=== PATIENT | female | born 1980 | race Caucasian/White ===

== ENCOUNTER 2021-03-25 09:10 | Emergency (ER) | payer SELFPAY ==
[2021-03-25 09:17] VITALS: BP 142/90; PULSE 73; RESP 16; TEMP 36.8; O2SAT 99
--- NOTE | 2021-03-25 09:20 | ED.WOUNDLAC ---
HPI - Wound/Laceration General Chief Complaint: Wound/Laceration Stated Complaint: Laceration on Left Hand Time Seen by Provider: 03/25/21 09:30 Source: patient and RN notes reviewed Mode of arrival: ambulatory Limitations: no limitations History of Present Illness HPI narrative: 40-year-old female presents concern for laceration to the left hand. Reports prior to arrival she was using a preparing box tender and cut the hand. She reports she is up-to-date on her vaccinations. She denies any decrease strength, sensation, range of motion in the hand or digits. Extremity Location: Left: hand Related Data Home Medications Medication Instructions Recorded Confirmed hydrochlorothiazide 03/25/21 norethindrone-e.estradiol-iron tablet 03/25/21 [Michael Fe [birth year] ([birth year])] Allergies Allergy/AdvReac Type Severity Reaction Status Date / Time No Known Allergies Allergy Verified 03/25/21 09:40 Review of Systems Review of Systems: CONSTITUTIONAL: Denies malaise, chills, sweats, or fever. SKIN: Reports laceration to the palmar aspect of the left hand beneath the first digit MUSCULOSKELETAL: Denies muscle skeletal pain, decreased range of motion, strength NEUROLOGIC: Denies numbness, weakness All systems reviewed & are unremarkable except as noted in HPI and below PMFSH Comments At time of signature, agree with nursing past medical, surgical, social and family history. There is no relevant family history pertinent to the presenting complaint Exam Narrative: GENERAL: Well-appearing, well-nourished, and in no acute distress. HEAD: Normocephalic EYES: PERRLA, conjunctivae clear NECK: Supple. CHEST: Speaks in full sentences. No respiratory distress. HEART: Regular rate and rhythm. Normal and equal peripheral pulses. EXTREMITIES: Left hand and digits of hand have normal strength and sensation. 5/5 strength with digit flexion, extension. Range of motion grossly normal. No clubbing, cyanosis, or edema noted. No scissoring. Normal thumb opposition. Good capillary refill and radial pulse. Distal capillary refill less than 3 seconds. SKIN: Warn, dry, intact, pink. Linear laceration in the subcutaneous tissue noted at the base of the left thumb at the palmar dorsal junction approximately 3 cm long NEURO: Alert and oriented x3. PSYCH: Normal mood and affect Course Course Emergency Course: Patient is aware of diagnosis, understands and agrees to treatment plan. Anticipatory guidance given. Patient agrees to follow-up as directed and is aware of reasons to seek care at the emergency department. Portions of this record may have been created with voice recognition software Vital Signs Vital signs: Vital Signs Temperature 98.3 F 03/25/21 09:17 Pulse Rate 73 03/25/21 09:17 Respiratory Rate 16 03/25/21 09:17 Blood Pressure 142/90 H 03/25/21 09:17 Pulse Oximetry 99 03/25/21 09:17 Temperature 98.3 F 03/25/21 09:17 Pulse Rate 73 03/25/21 09:17 Respiratory Rate 16 03/25/21 09:17 Blood Pressure 142/90 H 03/25/21 09:17 Pulse Oximetry 99 03/25/21 09:17 Reviewed. Procedures Laceration Laceration 1: Date: 03/25/21 Time: 09:35 Site: hand Side (If applicable): left Size (cm): 3 Description: linear Depth: simple, single layer Local Anesthetic: lidocaine 1% Amount of anesthesia used (mL): 2 Pre-repair: wound explored and irrigated ====== Skin Level ====== Skin layer closed with: nylon Size (cm): 4-0 Number of sutures: 6 Technique: simple, interrupted ====== Subcutaneous Layer ====== ====== Muscle Layer ====== ====== Tendon Layer ====== MDM - Wound/Laceration MDM Narrative Medical decision making narrative: Wound explored for foreign body and copious irrigation provided with no evidence of FB. Discussed the potential of retained foreign body with the patient and signs/symptoms that should prompt the patien
== END 2021-03-25 10:10 | disposition home or self-care (01) ==
PROVIDERS: Emergency Provider Nurse Practitioner; PCP Nurse Practitioner Family
DX: S61.412A Laceration without foreign body of left hand, initial encounter (principal); W26.8XXA Contact with other sharp object(s), not elsewhere classified, initial encounter; I10 Essential (primary) hypertension
CPT/HCPCS: 12002; 99212; G0463